=== PATIENT | female | born 1980 | race Asian ===

== ENCOUNTER 2016-08-15 02:17 | Emergency (ER) | payer OTHER ==
[~2016-08-15] VITALS: Ht 165.1 cm; Wt 72.6 kg
--- NOTE | 2016-08-15 02:25 | NUR ---
Patient to ER bed 06 to gown for evaluation. Side rails up. Report given to
--- NOTE | 2016-08-15 02:30 | NUR ---
Patient was working and c/o sharp R sided pelvic pain 09/03 since 1499. Will continue to monitor patient.
[2016-08-15 02:34] VITALS: BP 120/86; PULSE 83; RESP 16; TEMP 97.9; O2SAT 98
--- NOTE | 2016-08-15 02:40 | NUR ---
ER at bedside examining patient.
[2016-08-15] MEDS ORDERED: KETOROLAC TROMETHAMINE 30 MG VIAL IVP ONE (03:00)
[2016-08-15 03:04] LABS: BILIRUBIN,URINE NEGATIVE (NEGATIVE); BLOOD, URINE 1+ (NEGATIVE); CLARITY/URINE CLEAR (CLEAR); COLOR,URINE YELLOW (YELLOW); GLUCOSE,URINE NEGATIVE (NEGATIVE); KETONES,URINE NEGATIVE (NEGATIVE); LEUKOCYTE ESTERASE ,URINE NEGATIVE (NEGATIVE); NITRITE, URINE NEGATIVE (NEGATIVE); PROTEIN URINE NEGATIVE (NEGATIVE); UROBILINOGEN,URINE 0.2 (0.2-1.0)
[2016-08-15 03:17] LABS: BASOPHILS % (AUTO) 0.4 % (0.0-2.0); EOSINOPHILS # (AUTO) 0.3 K/uL (0.0-0.4); HEMATOCRIT 37.1 % (36-48); HEMOGLOBIN 12.6 g/dL (12.0-16.0); LYMPHOCYTES # (AUTO) 2.7 K/uL (1.0-5.5); LYMPHOCYTES % (AUTO) 24.9 % (20.5-51.5); MEAN CORPUSCULAR HEMOGLOBIN 31 pg (27-31); MEAN CORPUSCULAR HGB CONC 34 % (32-36); MEAN CORPUSCULAR VOLUME 92 fL (79.0-98.0); MONOCYTES # (AUTO) 0.7 K/uL (0.0-1.0); MONOCYTES % (AUTO) 6.1 % (1.7-9.3); NEUTROPHILS # (AUTO) 7.1 K/uL (1.8-7.7); NEUTROPHILS % (AUTO) 65.6 % (40.0-70.0); PLATELET COUNT (AUTO) 270 K/uL (130-430); RED BLOOD CELL COUNT(AUTO) 4.06 MIL/uL (4.2-6.2); RED CELL DISTRIBUTION WIDTH 12.9 % (9.0-15.0); WHITE BLOOD COUNT (AUTO) 10.8 K/uL (4.8-10.8)
[2016-08-15 03:24] LABS: BACTERIA,URINE None Seen /HPF (None Seen); WBC,URINE 0-3 /HPF (0-3)
[2016-08-15 03:25] LABS: MUCUS,URINE None Seen /LPF (None Seen)
[2016-08-15 03:26] LABS: CALCIUM 9.5 mg/dL (8.4-11.0); CREATININE 0.72 mg/dL (0.55-1.30); POTASSIUM 3.3 mmol/L (3.5-5.1)
[2016-08-15 03:33] LABS: TOTAL BILIRUBIN 0.4 mg/dL (0.0-1.0)
[2016-08-15 04:20] VITALS: BP 120/86; PULSE 83; RESP 16; TEMP 97.9; O2SAT 98
--- NOTE | 2016-08-15 04:23 | NUR ---
Patient given written and verbal discharge instructions and verbalizes understanding. ER MD discussed with patient the results and treatment provided. Given copies of tests performed in ER. Patient in stable condition. ID arm band removed. IV catheter removed intact and dressing applied, no active bleeding. Rx of Ibuprofen given. Patient educated on pain management and to follow up with PMD. Pain Scale 0/10. Opportunity for questions provided and answered.
== END 2016-08-15 04:20 | disposition home or self-care (01) ==
LOC: SED 02:17
DX: R10.31 Right lower quadrant pain (principal)
CPT/HCPCS: 36415; 80053; 81000; 81025; 85025; 96374; 99284; J1885

== ENCOUNTER 2017-06-25 19:24 | Emergency (ER) | payer OTHER ==
[~2017-06-25] VITALS: Ht 165.1 cm; Wt 72.6 kg
[2017-06-25 19:25] VITALS: BP_SYST 127
--- NOTE | 2017-06-25 20:01 | NUR ---
Pt to bed 7 for exam.
--- NOTE | 2017-06-25 20:08 | NUR ---
Pt ambulated into ED c/o headache x4 days, L eye pain/pressure and tingling down L cheek x2days. Pt is speaking in full sentences, breathing even and unlabored, skin pink and dry. Pt denies LOC/N/V/D. No other injures/complaints per pt/noted. Will continue to monitor.
[2017-06-25 20:15] LABS: BILIRUBIN,URINE NEGATIVE (NEGATIVE); BLOOD, URINE NEGATIVE (NEGATIVE); CLARITY/URINE CLEAR (CLEAR); COLOR,URINE YELLOW (YELLOW); GLUCOSE,URINE NEGATIVE (NEGATIVE); KETONES,URINE NEGATIVE (NEGATIVE); LEUKOCYTE ESTERASE ,URINE NEGATIVE (NEGATIVE); NITRITE, URINE NEGATIVE (NEGATIVE); PH,URINE 6.5 (5.0-8.0); PROTEIN URINE NEGATIVE (NEGATIVE)
[2017-06-25] MEDS ORDERED: DIPHENHYDRAMINE INJ 50 MG/ML VIAL IVP ONE (20:15)
[2017-06-25] MEDS ORDERED: KETOROLAC TROMETHAMINE 30 MG VIAL IVP ONE (20:15)
[2017-06-25] MEDS ORDERED: NACL 0.9% 1,000 ML IV ONE (20:15)
[2017-06-25] MEDS ORDERED: PROCHLORPERAZINE EDISYLATE 10 MG/2 ML VIAL IVP ONE (20:15)
--- NOTE | 2017-06-25 20:20 | NUR ---
KEY Porter [employer] HELPER at bedside examining patient.
--- NOTE | 2017-06-25 21:10 | NUR ---
# 20 gauge angiocath placed to L AC. Use of asceptic technique. Opsite placed over site. Blood return noted. Flushed with 10 cc of normal saline. No evidence of infiltration noted. Patient tolerated well.
--- NOTE | 2017-06-25 21:15 | NUR ---
Medication administered. Pt tolerated well. No adverse reactions noted.
[2017-06-25 21:40] VITALS: BP_SYST 120
--- NOTE | 2017-06-25 21:50 | NUR ---
Patient given written and verbal discharge instructions and verbalizes understanding. ER Charlotte CLOTH SHRINKER discussed with patient the results and treatment provided. Patient in stable condition. ID arm band removed. IV catheter removed intact and dressing applied, no active bleeding. Rx of Naproxen, Prednisone given. Patient educated on pain management and to follow up with PMD. Pain Scale 0. Opportunity for questions provided and answered.
== END 2017-06-25 21:50 | disposition home or self-care (01) ==
LOC: SED 19:24
DX: G44.009 Cluster headache syndrome, unspecified, not intractable (principal); R03.0 Elevated blood-pressure reading, without diagnosis of hypertension
CPT/HCPCS: 81003; 81025; 96361; 96374; 96375; 99284; J0780; J1200; J1885; J7030

== ENCOUNTER 2018-04-10 12:23 | Emergency (ER) | payer OTHER ==
[~2018-04-10] VITALS: Ht 165.1 cm; Wt 72.6 kg
[2018-04-10 12:27] VITALS: BP_SYST 137
--- NOTE | 2018-04-10 12:37 | NUR ---
Pt placed in bed 7
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
--- NOTE | 2018-04-10 13:04 | NUR ---
ER CHARLES Porter examining patient.
[2018-04-10 13:13] LABS: BILIRUBIN,URINE NEGATIVE (NEGATIVE); BLOOD, URINE NEGATIVE (NEGATIVE); CLARITY/URINE CLEAR (CLEAR); COLOR,URINE YELLOW (YELLOW); GLUCOSE,URINE NEGATIVE (NEGATIVE); KETONES,URINE NEGATIVE (NEGATIVE); LEUKOCYTE ESTERASE ,URINE NEGATIVE (NEGATIVE); NITRITE, URINE NEGATIVE (NEGATIVE); PROTEIN URINE NEGATIVE (NEGATIVE); UROBILINOGEN,URINE 0.2 (0.2-1.0)
[2018-04-10] MEDS ORDERED: KETOROLAC TROMETHAMINE 60 MG/2 ML VIAL IM ONE (13:15)
[2018-04-10 13:44] VITALS: BP_SYST 111
--- NOTE | 2018-04-10 13:45 | NUR ---
Patient given written and verbal discharge instructions and verbalizes understanding. ER MD discussed with patient the results and treatment provided. Patient in stable condition. ID arm band removed. Rx of Tramadol,Motrin,Soma given. Patient educated on pain management and to follow up with PMD. Pain Scale 3/10 tolerable for patient . Opportunity for questions provided and answered. Medication side effect fact sheet provided.
== END 2018-04-10 13:44 | disposition home or self-care (01) ==
LOC: SED 12:23
DX: S39.012A Strain of muscle, fascia and tendon of lower back, initial encounter (principal); S16.1XXA Strain of muscle, fascia and tendon at neck level, initial encounter; R03.0 Elevated blood-pressure reading, without diagnosis of hypertension; V43.52XA Car driver injured in collision with other type car in traffic accident, initial encounter; Y93.89 Activity, other specified; Y92.481 Parking lot as the place of occurrence of the external cause; Y99.8 Other external cause status
CPT/HCPCS: 81003; 81025; 96372; 99283; J1885

== ENCOUNTER 2018-07-24 09:59 | Outpatient (CLI) | payer OTHER ==
[2018-07-24 15:48] LABS: BILIRUBIN,URINE NEGATIVE (NEGATIVE); BLOOD, URINE NEGATIVE (NEGATIVE); CLARITY/URINE CLEAR (CLEAR); COLOR,URINE YELLOW (YELLOW); GLUCOSE,URINE NEGATIVE (NEGATIVE); KETONES,URINE NEGATIVE (NEGATIVE); LEUKOCYTE ESTERASE ,URINE NEGATIVE (NEGATIVE); NITRITE, URINE NEGATIVE (NEGATIVE); PROTEIN URINE NEGATIVE (NEGATIVE); UROBILINOGEN,URINE 0.2 (0.2-1.0)
[2018-07-24 15:52] LABS: BASOPHILS % (AUTO) 0.2 % (0.0-2.0); EOSINOPHILS # (AUTO) 0.3 K/uL (0.0-0.4); EOSINOPHILS % (AUTO) 4.4 % (0.0-4.0); HEMATOCRIT 39.8 % (36-48); LYMPHOCYTES % (AUTO) 27.7 % (20.5-51.5); MEAN CORPUSCULAR HEMOGLOBIN 31 pg (27-31); MEAN CORPUSCULAR HGB CONC 33 % (32-36); MEAN CORPUSCULAR VOLUME 94 fL (79.0-98.0); MONOCYTES # (AUTO) 0.6 K/uL (0.0-1.0); NEUTROPHILS # (AUTO) 4.3 K/uL (1.8-7.7); NEUTROPHILS % (AUTO) 59.7 % (40.0-70.0); PLATELET COUNT (AUTO) 304 K/uL (130-430); RED BLOOD CELL COUNT(AUTO) 4.23 MIL/uL (4.2-6.2); RED CELL DISTRIBUTION WIDTH 12.6 % (9.0-15.0); WHITE BLOOD COUNT (AUTO) 7.2 K/uL (4.8-10.8)
== END 2018-07-24 20:47 | disposition home or self-care (01) ==
LOC: SRD 09:59
PROVIDERS: ATTEND Family Medicine
DX: Z32.02 Encounter for pregnancy test, result negative (principal); R05 Cough
CPT/HCPCS: 36415; 71045; 81003; 84703; 85025

== ENCOUNTER 2019-03-08 00:28 | Emergency (ER) | payer BC, OTHER ==
[~2019-03-08] VITALS: Ht 165.1 cm; Wt 74.8 kg
[2019-03-08 00:30] VITALS: BP_SYST 149
--- NOTE | 2019-03-08 00:39 | NUR ---
Patient to ER bed 4 to gown for evaluation. Side rails up.
--- NOTE | 2019-03-08 01:15 | NUR ---
Pt is AAOx4 and ambulatory. Per pt she has been experiencing nausea for 1 hour prior to arrival in ER. Per pt she ate a potato ball from [employer] and then started to feel sick. Pt also states that she has been having pelvic pain 5/10 for the past couple of days. Pt states feeling weak but denies any diarrhea/vomitting. Will continue to monitor pt.
--- NOTE | 2019-03-08 01:40 | NUR ---
ER at bedside examining patient.
[2019-03-08] MEDS ORDERED: NACL 0.9% 1,000 ML IV ONE (01:41)
[2019-03-08] MEDS ORDERED: ONDANSETRON HCL 4 MG/2 ML VIAL IVP ONE (01:45)
[2019-03-08] MEDS ORDERED: PANTOPRAZOLE SODIUM 40 MG/VIAL (PROTONIX) IVP ONE (01:45)
[2019-03-08 01:57] LABS: BASOPHILS % (AUTO) 0.4 % (0.0-2.0); EOSINOPHILS # (AUTO) 0.1 K/uL (0.0-0.4); EOSINOPHILS % (AUTO) 1.7 % (0.0-4.0); HEMATOCRIT 38.3 % (36-48); HEMOGLOBIN 13.2 g/dL (12.0-16.0); LYMPHOCYTES # (AUTO) 1.9 K/uL (1.0-5.5); LYMPHOCYTES % (AUTO) 23.6 % (20.5-51.5); MEAN CORPUSCULAR HEMOGLOBIN 32 pg (27-31); MEAN CORPUSCULAR HGB CONC 34 % (32-36); MEAN CORPUSCULAR VOLUME 94 fL (79.0-98.0); MONOCYTES # (AUTO) 0.6 K/uL (0.0-1.0); NEUTROPHILS # (AUTO) 5.5 K/uL (1.8-7.7); NEUTROPHILS % (AUTO) 67.3 % (40.0-70.0); PLATELET COUNT (AUTO) 266 K/uL (130-430); RED BLOOD CELL COUNT(AUTO) 4.06 MIL/uL (4.2-6.2); WHITE BLOOD COUNT (AUTO) 8.2 K/uL (4.8-10.8)
[2019-03-08 02:11] LABS: CALCIUM 9.3 mg/dL (8.4-11.0); CREATININE 0.8 mg/dL (0.55-1.30); POTASSIUM 3.5 mmol/L (3.5-5.1)
[2019-03-08 02:16] LABS: ALBUMIN 3.8 g/dL (3.4-4.8); TOTAL BILIRUBIN 0.4 mg/dL (0.0-1.0)
--- NOTE | 2019-03-08 02:30 | NUR ---
# 20 gauge angiocath placed to LAC. Use of asceptic technique. Opsite placed over site. Blood return noted. Flushed with 10 cc of normal saline. No evidence of infiltration noted. Patient tolerated well.
[2019-03-08 03:06] LABS: ERYTHROCYTE SEDIMENTATION RATE 7 MM/HR (0-20)
[2019-03-08 03:42] LABS: BILIRUBIN,URINE NEGATIVE (NEGATIVE); CLARITY/URINE CLEAR (CLEAR); COLOR,URINE YELLOW (YELLOW); GLUCOSE,URINE NEGATIVE (NEGATIVE); KETONES,URINE NEGATIVE (NEGATIVE); LEUKOCYTE ESTERASE ,URINE NEGATIVE (NEGATIVE); NITRITE, URINE NEGATIVE (NEGATIVE); PH,URINE 5.5 (5.0-8.0); PROTEIN URINE NEGATIVE (NEGATIVE); UROBILINOGEN,URINE 0.2 (0.2-1.0)
[2019-03-08 03:46] LABS: BLOOD, URINE TRACE (NEGATIVE)
[2019-03-08 03:48] LABS: BACTERIA,URINE FEW /HPF (None Seen); WBC,URINE 0-3 /HPF (0-3)
[2019-03-08 04:53] VITALS: BP_SYST 137
--- NOTE | 2019-03-08 04:53 | NUR ---
Patient given written and verbal discharge instructions and verbalizes understanding. ER MD discussed with patient the results and treatment provided. Patient in stable condition. ID arm band removed. IV catheter removed intact and dressing applied, no active bleeding. Rx of Zofran and Protonix given. Patient educated on pain management and to follow up with PMD. Pain Scale 0/10. Opportunity for questions provided and answered. Medication side effect fact sheet provided.
== END 2019-03-08 04:53 | disposition home or self-care (01) ==
LOC: SED 00:28
DX: R10.2 Pelvic and perineal pain (principal); I10 Essential (primary) hypertension; R11.0 Nausea
CPT/HCPCS: 36415; 80053; 81000; 81025; 85025; 85651; 96374; 96375; 99283; C9113; J2405; J7030

== ENCOUNTER 2020-02-28 17:09 | Emergency (ER) | payer OTHER ==
[~2020-02-28] VITALS: Ht 165.1 cm; Wt 74.8 kg
[2020-02-28 17:21] VITALS: BP_SYST 132
--- NOTE | 2020-02-28 17:27 | NUR ---
Pt triaged, v/s stable, placed in waiting room until bed available
--- NOTE | 2020-02-28 17:40 | NUR ---
Pt to [facility] for assessment'
--- NOTE | 2020-02-28 17:50 | NUR ---
ER Dr. Vaughn at bedside examining patient.
--- NOTE | 2020-02-28 18:35 | NUR ---
Patient given written and verbal discharge instructions and verbalizes understanding. ER MD discussed with patient the results and treatment provided. Patient in stable condition. ID arm band removed. No prescriptions given given. Patient educated on pain management and to follow up with PMD. Pain Scale 0. Opportunity for questions provided and answered. Medication side effect fact sheet provided.
[2020-02-28 18:36] VITALS: BP_SYST 132
== END 2020-02-28 18:35 | disposition home or self-care (01) ==
LOC: SED 17:09
DX: G43.901 Migraine, unspecified, not intractable, with status migrainosus (principal)
CPT/HCPCS: 81025; 99282

== ENCOUNTER 2020-03-12 01:00 | Outpatient (CLI) | payer OTHER ==
[2020-03-12 01:59] LABS: BASOPHILS % (AUTO) 0.3 % (0.0-2.0); EOSINOPHILS # (AUTO) 0.3 K/uL (0.0-0.4); EOSINOPHILS % (AUTO) 2.5 % (0.0-4.0); HEMATOCRIT 38.2 % (36-48); HEMOGLOBIN 12.9 g/dL (12.0-16.0); LYMPHOCYTES # (AUTO) 2.6 K/uL (1.0-5.5); LYMPHOCYTES % (AUTO) 25.8 % (20.5-51.5); MEAN CORPUSCULAR HEMOGLOBIN 32 pg (27-31); MEAN CORPUSCULAR HGB CONC 34 % (32-36); MEAN CORPUSCULAR VOLUME 96 fL (79.0-98.0); MONOCYTES # (AUTO) 0.8 K/uL (0.0-1.0); MONOCYTES % (AUTO) 7.7 % (1.7-9.3); NEUTROPHILS # (AUTO) 6.5 K/uL (1.8-7.7); NEUTROPHILS % (AUTO) 63.7 % (40.0-70.0); PLATELET COUNT (AUTO) 269 K/uL (130-430); RED BLOOD CELL COUNT(AUTO) 3.98 MIL/uL (4.2-6.2); RED CELL DISTRIBUTION WIDTH 13.2 % (9.0-15.0); WHITE BLOOD COUNT (AUTO) 10.2 K/uL (4.8-10.8)
[2020-03-12 02:16] LABS: BILIRUBIN,URINE NEGATIVE (NEGATIVE); BLOOD, URINE NEGATIVE (NEGATIVE); CLARITY/URINE CLEAR (CLEAR); COLOR,URINE YELLOW (YELLOW); GLUCOSE,URINE NEGATIVE (NEGATIVE); KETONES,URINE TRACE (NEGATIVE); LEUKOCYTE ESTERASE ,URINE NEGATIVE (NEGATIVE); NITRITE, URINE NEGATIVE (NEGATIVE); PH,URINE 5.5 (5.0-8.0); PROTEIN URINE NEGATIVE (NEGATIVE); UROBILINOGEN,URINE 0.2 (0.2-1.0)
[2020-03-12 02:26] LABS: ALBUMIN 4.2 g/dL (3.4-4.8); BILIRUBIN,DIRECT 0.1 mg/dL (0.0-0.3); CALCIUM 9.2 mg/dL (8.4-11.0); CREATININE 0.83 mg/dL (0.55-1.30); POTASSIUM 3.9 mmol/L (3.5-5.1); THYROID STIMULATING HORMONE 3.51 uIu/mL (0.34-4.82); TOTAL BILIRUBIN 0.4 mg/dL (0.0-1.0); URIC ACID 7.7 mg/dL (2.4-7.0)
[2020-03-13 07:15] LABS: HEMOGLOBIN A1C 5.4 % (4.8-5.6)
[2020-03-13 08:47] LABS: FOLLICLE STIMULATION HORMONE 8.4 mIU/mL (.); TRIIODOTHYRONINE, FREE 3.2 pg/mL (2.0-4.4)
== END 2020-03-12 13:20 | disposition home or self-care (01) ==
LOC: SLB 01:00
PROVIDERS: ATTEND Family Medicine
DX: Z00.00 Encounter for general adult medical examination without abnormal findings (principal)
CPT/HCPCS: 36415; 80048; 80061; 80076; 81003; 82306; 82607; 83001; 83002; 83036; 83540-TC; 84443-TC; 84481; 84550-TC; 85025

== ENCOUNTER 2020-04-17 08:53 | Outpatient (CLI) | payer OTHER | END 2020-04-17 20:06 | disposition home or self-care (01) | LOC: SMI 08:53 | PROVIDERS: ATTEND Psychiatry & Neurology Neurology | DX: R51.9 Headache, unspecified (principal) | CPT/HCPCS: 70551 ==

== ENCOUNTER 2020-07-10 11:51 | Outpatient (CLI) | payer OTHER | END 2020-07-10 18:23 | disposition home or self-care (01) | LOC: SRD 11:51 | PROVIDERS: ATTEND Family Medicine | DX: R05 Cough (principal); Z86.16 Personal history of COVID-19 | CPT/HCPCS: 71046-TC ==

== ENCOUNTER 2020-12-29 18:19 | Emergency (ER) | payer OTHER ==
[~2020-12-29] VITALS: Ht 165.1 cm; Wt 77.1 kg
[2020-12-29 18:28] VITALS: BP_SYST 144
--- NOTE | 2020-12-29 18:33 | NUR ---
pt. bib with c/o chest pain, non radiating, describes it as sharp, started less than an hour ago, rates it 5/10 at worst at this time pain gone
--- NOTE | 2020-12-29 18:41 | NUR ---
ER at bedside examining patient.
--- NOTE | 2020-12-29 18:47 | NUR ---
lab here for blood draw
[2020-12-29 19:02] LABS: BASOPHILS % (AUTO) 0.5 % (0.0-2.0); EOSINOPHILS # (AUTO) 0.3 K/uL (0.0-0.4); EOSINOPHILS % (AUTO) 3.3 % (0.0-4.0); HEMATOCRIT 37.9 % (36-48); HEMOGLOBIN 12.9 g/dL (12.0-16.0); LYMPHOCYTES # (AUTO) 1.9 K/uL (1.0-5.5); LYMPHOCYTES % (AUTO) 24.9 % (20.5-51.5); MEAN CORPUSCULAR HEMOGLOBIN 33 pg (27-31); MEAN CORPUSCULAR HGB CONC 34 % (32-36); MEAN CORPUSCULAR VOLUME 96 fL (79.0-98.0); MONOCYTES # (AUTO) 0.4 K/uL (0.0-1.0); MONOCYTES % (AUTO) 5.5 % (1.7-9.3); NEUTROPHILS # (AUTO) 5.1 K/uL (1.8-7.7); NEUTROPHILS % (AUTO) 65.8 % (40.0-70.0); PLATELET COUNT (AUTO) 295 K/uL (130-430); RED BLOOD CELL COUNT(AUTO) 3.96 MIL/uL (4.2-6.2); RED CELL DISTRIBUTION WIDTH 13.1 % (9.0-15.0); WHITE BLOOD COUNT (AUTO) 7.8 K/uL (4.8-10.8)
--- NOTE | 2020-12-29 19:11 | NUR ---
report to Omari
--- NOTE | 2020-12-29 19:11 | NUR ---
Assumed care of patient at change of shift. Introduced self to patient and family member who is at bedside. Patient positioned for comfort and safety w/ bed to low position sr up. Nsr on environmental monitoring specialist. Denies any cp or sob at this time. Patient resting quietly. No acute distress noted. Vital signs within normal range. Continue to monitor.
[2020-12-29 19:23] LABS: CALCIUM 9.1 mg/dL (8.4-11.0); CREATININE 0.85 mg/dL (0.55-1.30); POTASSIUM 3.6 mmol/L (3.5-5.1)
[2020-12-29 19:38] LABS: ALBUMIN 3.6 g/dL (3.4-4.8); FREE T4 (FREE THYROXINE) 0.9 ng/dl (0.8-1.5); THYROID STIMULATING HORMONE 1.32 uIu/mL (0.36-3.74); TOTAL BILIRUBIN 0.3 mg/dL (0.0-1.0)
--- NOTE | 2020-12-29 19:50 | NUR ---
pcxr done at bedside
[2020-12-29 20:42] VITALS: BP_SYST 127
--- NOTE | 2020-12-29 20:42 | NUR ---
Patient given written and verbal discharge instructions and verbalizes understanding. ER MD discussed with patient the results and treatment provided. Patient in stable condition. ID arm band removed. Patient educated on pain management and to follow up with PMD. Pain Scale 0. Opportunity for questions provided and answered. Medication side effect fact sheet provided.
== END 2020-12-29 20:42 | disposition home or self-care (01) ==
LOC: SED 18:19
DX: R07.2 Precordial pain (principal); R00.2 Palpitations
CPT/HCPCS: 36415; 71045; 80053; 84439; 84443; 84484; 84703; 85025; 85379; 93005; 99285

== ENCOUNTER → 2021-02-09 | Outpatient (CLI) | payer OTHER ==
[2021-02-09 11:56] LABS: BASOPHILS % (AUTO) 0.4 % (0.0-2.0); EOSINOPHILS # (AUTO) 0.2 K/uL (0.0-0.4); HEMATOCRIT 39.1 % (36-48); HEMOGLOBIN 13.4 g/dL (12.0-16.0); LYMPHOCYTES # (AUTO) 1.8 K/uL (1.0-5.5); LYMPHOCYTES % (AUTO) 25.9 % (20.5-51.5); MEAN CORPUSCULAR HEMOGLOBIN 33 pg (27-31); MEAN CORPUSCULAR HGB CONC 34 % (32-36); MEAN CORPUSCULAR VOLUME 96 fL (79.0-98.0); MONOCYTES # (AUTO) 0.4 K/uL (0.0-1.0); NEUTROPHILS # (AUTO) 4.4 K/uL (1.8-7.7); NEUTROPHILS % (AUTO) 64.7 % (40.0-70.0); PLATELET COUNT (AUTO) 276 K/uL (130-430); RED BLOOD CELL COUNT(AUTO) 4.09 MIL/uL (4.2-6.2); RED CELL DISTRIBUTION WIDTH 12.8 % (9.0-15.0); WHITE BLOOD COUNT (AUTO) 6.8 K/uL (4.8-10.8)
[2021-02-09 12:07] LABS: BILIRUBIN,URINE NEGATIVE (NEGATIVE); BLOOD, URINE NEGATIVE (NEGATIVE); CLARITY/URINE CLEAR (CLEAR); COLOR,URINE YELLOW (YELLOW); GLUCOSE,URINE NEGATIVE (NEGATIVE); KETONES,URINE NEGATIVE (NEGATIVE); LEUKOCYTE ESTERASE ,URINE NEGATIVE (NEGATIVE); NITRITE, URINE NEGATIVE (NEGATIVE); PH,URINE 5.5 (5.0-8.0); PROTEIN URINE NEGATIVE (NEGATIVE); UROBILINOGEN,URINE 0.2 (0.2-1.0)
[2021-02-09 12:30] LABS: ALBUMIN 3.9 g/dL (3.4-4.8); BILIRUBIN,DIRECT 0.1 mg/dL (0.0-0.3); CALCIUM 9.3 mg/dL (8.4-11.0); CREATININE 0.75 mg/dL (0.55-1.30); POTASSIUM 4.1 mmol/L (3.5-5.1); THYROID STIMULATING HORMONE 1.88 uIu/mL (0.36-3.74); TOTAL BILIRUBIN 0.4 mg/dL (0.0-1.0)
== END | disposition home or self-care (01) ==
LOC: SLB 10:41
PROVIDERS: ATTEND Pathology Anatomic Pathology & Clinical Pathology
DX: Z00.00 Encounter for general adult medical examination without abnormal findings (principal); Z13.0 Encounter for screening for diseases of the blood and blood-forming organs and certain disorders involving the immune mechanism
CPT/HCPCS: 36415; 80053; 80061; 81003; 82248; 83036; 84443; 85025